=== PATIENT | female | born 1970 | race Caucasian/White ===

== ENCOUNTER 2019-02-21 00:53 | Emergency (ER) | payer BC, OTHER ==
[~2019-02-21] VITALS: Ht 152.4 cm; Wt 104.3 kg
[~2019-02-21 00:53] MED LIST: AZULFIDINE500 M1 PO; ENBREL50 MG/1 ML SQ; FOLIC ACID1 MG PO; HYDROCODON-ACE1 EA11 PO; KEFLEX500 MG PO; LISINOPRIL20 MG PO; METHOTREXATE 1 G1 GM; METOPROLOL TART50 MG PO; NEXIUM40 MG PO; NORCO 10-325 T1 EACH PO; PANTOPRAZOLE SO40 MG PO; PRILOSEC20 MG PO; TRICOR145 MG PO; ULTRAM50 MG PO; XANAX1 MG PO; XOPENEX HFA15 GM; ZESTRIL10 MG PO; ZOLOFT50 MG PO; ZYRTEC10 M3 PO
--- OUTSIDE RECORDS SUMMARY | 2019-02-21 00:58 | XMS REPORT | Continuity of Care Document ---
Author Author [facility] Interface Address Unknown Phone Unavailable Problems Problem Status Onset Date Classification Date Reported Comments Source Chronic low back pain 09/22/2017 Diagnosis 09/23/2017 [facility] RHEUMTOID ARTHRITIS PAIN IN HANDS HIPS F Active 10/13/2000 [facility] Dysuria Problem 09/23/2017 [facility] Medications Medication Details Route Status Patient Instructions Ordering Provider Order Date Source Alprazolam 0.5 MG Oral Tablet alprazolam 0.5 mg tablet TK 1 T PO BID Active [facility] Cyclobenzaprine hydrochloride 10 MG Oral Tablet cyclobenzaprine 10 mg tablet Take 1 tablet 3 times a day by oral route as needed for 10 days. Active [facility] 0.98 ML Etanercept 50 MG/ML Auto-Injector [Enbrel] Enbrel SureClick 50 mg/mL (0.98 mL) subcutaneous pen injector Active [facility] folic acid folic acid Active [facility] Acetaminophen 325 MG / Hydrocodone Bitartrate 5 MG Oral Tablet hydrocodone 5 mg-acetaminophen 325 mg tablet Active [facility] Hydroxyzine Hydrochloride 25 MG Oral Tablet hydroxyzine HCl 25 mg tablet Active [facility] Lidocaine 0.05 MG/MG Medicated Patch lidocaine 5 % topical patch Active [facility] Lisinopril 20 MG Oral Tablet lisinopril 20 mg tablet TK 1 T PO QD Active [facility] 200 ACTUAT Albuterol 0.09 MG/ACTUAT Metered Dose Inhaler [ProAir] ProAir HFA 90 mcg/actuation aerosol inhaler Active [facility] Sertraline 100 MG Oral Tablet sertraline 100 mg tablet TK 2 TS PO D Active [facility] Sulfasalazine 500 MG Oral Tablet sulfasalazine 500 mg tablet TK 2 TS PO BID Active [facility] tramadol hydrochloride 50 MG Oral Tablet tramadol 50 mg tablet TK 2 TS PO TID PRN Active [facility] Allergies, Adverse Reactions, Alerts Substance Category Reaction Severity Reaction type Status Date Reported Comments Source Advil Other Mild Allergy to substance 12/02/2011 [facility] Penicillins Allergy to substance 12/02/2011 [facility] cephalexin Assertion Drug allergy Active [facility] Keflex Assertion Drug allergy Active [facility] Immunizations Immunization Date Given Site Status Last Updated Comments Source Results Order Name Results Value Reference Range Date Interpretation Comments Source Foot 2 views bilateral DX Foot 2 views bilateral DX Clinical history: Rheumatoid Arthritis. : 1970. Technique: AP and lateral views of the bilateral feet. Findings: Right foot: There is no soft tissue swelling. No evidence for acute fracture. Normal articulations. No dislocation. No destructive lesion. Left foot: There is no soft tissue swelling. No evidence for acute fracture. Normal articulations. No dislocation. No destructive lesion. Impression: 1. No acute skeletal findings. 05/23/2015 - - Read by: Ta Tong MD Dictated Date/time: 05/23/15 16:09 Electronically Signed by: Ta Tong MD 05/23/15 16:09 FINAL REPORT [facility] Hip bilat w pelvis and both lat hips DX Hip bilat w pelvis and both lat hips DX Clinical history: Rheumatoid Arthritis. : 1970. Technique: 2 views of the bilateral hips and pelvis. Findings: Right hip: Normal hip joint. Normal sacroiliac joint. No evidence for acute fracture. No dislocation. No destructive lesion. Left hip: Normal hip joint. Normal sacroiliac joint. No evidence for acute fracture. No dislocation. No destructive lesion. Impression: 1. No acute skeletal findings. x-ray 05/23/2015 - - Read by: Ta Tong MD Dictated Date/time: 05/23/15 16:15 Electronically Signed by: Ta Tong MD 05/23/15 16:15 FINAL REPORT [facility] Hand 2 views Bilateral DX Hand 2 views Bilateral DX Clinical history: Rheumatoid Arthritis. : 1970. Technique: AP and lateral views of the bilateral hands. Findings: Right hand: There is no soft tissue swelling. No evidence for acute fracture. Normal articulations. No destructive lesion. Left hand: There is no soft tissue swelling. No evidence for acute fracture. Normal articulations. No destructive lesion. Impression: 1. No acute skeletal findings. 05/23/2015 - - Read by: Ta Tong MD Dictated Date/time: 05/23/15 16:09 Electronically Signed by: Ta Tong MD 05/23/15 16:10 FINAL REPORT [facility] Vital Signs Vital Sign Value Date Comments Source Diastolic (mm Hg) 80 09/22/2017 [facility] Height 60 09/22/2017 [facility] Systolic (mm Hg) 120 09/22/2017 [facility] Weight 195 09/22/2017 [facility] Encounters Location Location Details Encounter Type Encounter Number Reason For Visit Attending Provider ADM Date DC Date Status Source [facility] Outpatient [id number] Gail Ottcamilo 05/23/2015 05/24/2015 [facility] - [facility] - [id number] Charlee Alexandre, [facility]: [address] [place] [address], Ph. [id number] Charlee Alexandre 09/22/2017 [facility] Procedures Procedure Code Date Perfomer Comments Source Cholecystectomy [facility]
--- OUTSIDE RECORDS SUMMARY | 2019-02-21 00:58 | XMS REPORT | Encounter Summary ---
Author Organization Unknown Address [address] [place] [address] Phone [phone] Reason for Visit Medical Complaint Instructions 1. Chronic low back pain cyclobenzaprine 10 mg tablet Discussion Note Pt is in NAD; Verbalizes understanding of all instructions with no questions at this time. Patient educational handouts: No information available. Plan of Care Patient Instructions Recommend take cyclobenzaprine as directed. Do no operate any machinery or drive while taking these medications. Recommend avoid extreneous exercise, avoid heavy lifting. Activity as tolerated If worsening of symptoms follow up with PCP. In case of emergency call 911 or go to nearest ER. Reminders Provider Appointments None recorded. Lab None recorded. Referral None recorded. Procedures None recorded. Surgeries None recorded. Imaging None recorded. Medications Name Start Date alprazolam 0.5 mg tablet TK 1 T PO BID cyclobenzaprine 10 mg tablet Take 1 tablet 3 times a day by oral route as needed for 10 days. Enbrel SureClick 50 mg/mL (0.98 mL) subcutaneous pen injector folic acid hydrocodone 5 mg-acetaminophen 325 mg tablet hydroxyzine HCl 25 mg tablet lidocaine 5 % topical patch lisinopril 20 mg tablet TK 1 T PO QD ProAir HFA 90 mcg/actuation aerosol inhaler sertraline 100 mg tablet TK 2 TS PO D sulfasalazine 500 mg tablet TK 2 TS PO BID tramadol 50 mg tablet TK 2 TS PO TID PRN Medications Administered None recorded. Vitals Height Weight BMI Blood Pressure 5 ft 195 lbs 38.1 kg/m2 120/80 mm[Hg] Lab Results None recorded. Allergies Code Code System Name Reaction Severity Status Onset 461131 RxNorm Advil Other Mild Active 187968 Rx[facility] Keflex Hives Active Penicillins Active Problems Name Status Onset Date Source Dysuria Active Encounter Procedures Date Name Performed by Cholecystectomy Information not available Vaccine List None recorded. Social History Smoking Status Never Smoker Past Encounters 09/22/2017 Chronic Low Back Pain [facility]: [address] [place] [address], Ph. History of Present Illness One Time Refill Reported By: Patient HPI: Context: Patient here for medication refill, Why does patient require med refills at [facility]? (double click for free text answer). Quality: What medical problems does patient require refills for? (double click for free text), What medications does patient require refills for? (double click for free text). Duration: How long has patient been taking above medications? > 1 year. Onset/Timing: How long has patient been out of medication? still has some Review of Systems:ROS as noted in the HPI Review of Systems Basic Reported By: Patient Physical Exam Adult Basic, Adult Female Complete, Adult Male Complete Reported By: Patient Constitutional: General Appearance: healthy-appearing, well-nourished, well-developed. Level of Distress: NAD. Ambulation: ambulating normally Psychiatric: Mental Status: active and alert. Orientation: to time, to place, to person Lungs: Respiratory effort: no dyspnea, no tachypnea, no use of accessory muscles, no intercostal retractions. Auscultation: breath sounds normal, good air movement Cardiovascular: Heart Auscultation: RRR, no murmurs. Pulses including femoral / pedal: normal throughout Musculoskeletal:: Motor Strength and Tone: normal motor strength, normal tone, normal. Joints, Bones, and Muscles: no bony abnormalities, no contractures, no malalignment, no tenderness, limited ROM. Extremities: no cyanosis, no edema, no varicosities, no palpable cord Neurologic: Gait and Station: normal gait, normal station. Cranial Nerves: grossly intact. Sensation: grossly intact. Reflexes: DTRs 2+ bilaterally throughout Back: Thoracolumbar Appearance: normal curvature
--- OUTSIDE RECORDS SUMMARY | 2019-02-21 00:58 | XMS REPORT | Summary of Care ---
Author Author [facility] Organization [facility] Address Unknown Phone Unavailable Encounter HQ Encntr_alias(FIN) [id number] Date(s): 05/23/15 - 05/23/[address] [address]- Discharge Disposition: Home Attending Physician: Gail Keller MD Admitting Physician: Gail Keller MD Vital Signs No data available for this section Problem List No data available for this section Allergies, Adverse Reactions, Alerts Substance Reaction Severity Status cephalexin Active Keflex Active Medications No data available for this section Results No data available for this section Immunizations No data available for this section Procedures No data available for this section Social History No data available for this section Assessment and Plan No data available for this section
[2019-02-21] MEDS ORDERED: HYDROCODONE/APAP 5MG-325MG TAB PO ONE (01:30)
== END 2019-02-21 01:35 | disposition home or self-care (01) ==
LOC: FSED 00:53
DX: K08.89 Other specified disorders of teeth and supporting structures (principal); I10 Essential (primary) hypertension; M06.9 Rheumatoid arthritis, unspecified
CPT/HCPCS: 99283

== ENCOUNTER 2019-02-24 16:54 | Emergency (ER) | payer BC, OTHER ==
[~2019-02-24] VITALS: Ht 152.4 cm; Wt 104.3 kg
[2019-02-24] MEDS ORDERED: ONDANSETRON HCL INJ 2MG/ML 2ML 2 MG/ML VIAL IV STA (20:25)
[2019-02-24] MEDS ORDERED: MORPHINE SULFATE 5 MG/ML VIAL IV ONE (20:30)
[2019-02-24] MEDS ORDERED: CLINDAMYCIN 600MG / 50ML 50 ML IV ONE ×2 (20:30→22:25)
--- NOTE | 2019-02-24 22:20 | Diagnostic Imaging Report ---
History:Jaw pain and swelling Comparison studies: None Technique: Axial images were obtained through the facial region. Coronal and sagittal images reconstructed from the axial data. Dose modulation, iterative reconstruction, and/or weight based adjustment of the mA/kV was utilized to reduce the radiation dose to as low as reasonably achievable. Intravenous contrast: 100 cc of Omnipaque 300. Findings: Teeth: Multiple missing teeth. A periapical abscess in the root of what is probably the left right second mandibular molar (tooth #31) is not associated with erosive changes in the overlying buccal cortex. Soft tissues: Ill-defined enhancing inflammatory changes along the buccal surface of the right mandible are not associated with a fluid collection to indicate the presence of an abscess. Lymph nodes: 1 and 1.5 cm cm homogeneously enhancing, nonnecrotic right submandibular, 1.5 cm right suprahyoid jugular and subcentimeter submental are reactive. Otherwise, no significant adenopathy. Bones: No fractures or bone abnormalities. Orbits: Globes: Intact. Extra or intraconal abnormalities: None. Paranasal sinuses: Focal mucosal thickening in the floor of the right maxillary sinus and in the right ethmoid air cells. Otherwise, clear. IMPRESSION: 1. Acute cellulitis along the buccal surface of the right mandibular body is secondary to a periapical abscess in the root of what is presumed to be the right second mandibular molar (tooth #31). 2. No buccal or lingual abscesses. 3. Reactive right submandibular, submental and right suprahyoid jugular nonnecrotic adenopathy. 4. Otherwise, no abnormalities. Signed by: Dr. German Santos M.D. on 02/24/2019 10:14 PM
[2019-02-24] MEDS ORDERED: ONDANSETRON HCL INJ 2MG/ML 2ML 2 MG/ML VIAL ONE (22:25)
[2019-02-25] MEDS ORDERED: MORPHINE SULFATE 5 MG/ML VIAL IV ONE (00:15)
--- NOTE | 2019-02-26 22:00 | NUR ---
RECVD CALL FROM LABORATORY AT [facility], WITH RESULT OF POSITIVE BLOOD CULTURE FROM DOS 02/24/2019, AEROBIC BOTTLE POSITIVE FOR GRAM POS COCCI IN CLUSTERS. FORWARDED INFORMATION TO DEIRDRE WHITTEN (RN AT [facility]) RN WHO WAS TAKING CARE OF PATIENT AT [facility] RM 547. PT TRANSFERRED TO [facility] ON 02/24/2019 FROM [facility].
== END 2019-02-25 00:45 | disposition other institution (70) ==
LOC: FSED 16:54
DX: K04.7 Periapical abscess without sinus (principal); L03.211 Cellulitis of face; R68.84 Jaw pain
CPT/HCPCS: 70491; 80053; 85025; 87040; 87071; 87205; 99284; J2270; J2405

== ENCOUNTER 2020-03-23 17:03 | Emergency (ER) | payer BC ==
[~2020-03-23] VITALS: Ht 152.4 cm; Wt 100.7 kg
--- OUTSIDE RECORDS SUMMARY | 2020-03-23 17:07 | XMS REPORT | Continuity of Care Document ---
Author Author ALISIA Cisneros [facility] Information [employer] Address Unknown Phone Unavailable Care Team Providers Care Surveillance Specialist Name Role Phone [employer] Unavailable Un available Problems Problem Status Onset Date Classification Date Reported Comments Source RHEUMTOID ARTHRITIS PAIN IN HANDS HIPS F Active 10/13/2000 [facility] Medications No Data Provided for This Section Allergies, Adverse Reactions, Alerts Substance Category Reaction Severity Reaction type Status Date Reported Comments Source cephalexin Assertion Drug allergy Active [facility] Keflex Assertion Drug allergy Active [facility] Immunizations No Data Provided for This Section Results No Data Provided for This Section Pathology Reports No Data Provided for This Section Diagnostic Reports Report Value Date Source Hip bilat w pelvis and both lat [...] 1. No acute skeletal findings. x-ray 05/23/2015 [facility] Foot 2 views bilateral DX Clin ical history: Rheumatoid Arthritis. : 1970. Technique: AP and lateral views of the bilateral feet. Findings: Right foot: There is no soft tissue swelling. No evidence for acute fracture. Normal articulations. No dislocation. No destructive lesion. Left foot: There is no soft tissue swelling. No evidence for acute fracture. Normal articulations. No dislocation. No destructive lesion. Impression: 1. No acute skeletal findings. 05/23/2015 [facility] Hand 2 views Bilateral DX Clin ical history: Rheumatoid Arthritis. : 1970. Technique: AP and lateral views of the bilateral hands. Findings: Right hand: There is no soft tissue swelling. No evidence for acute fracture. Normal articulations. No destructive lesion. Left hand: There is no soft tissue swelling. No evidence for acute fracture. Normal articulations. No destructive lesion. Impression: 1. No acute skeletal findings. 05/23/2015 [facility] Consultation Notes No Data Provided for This Section Discharge Summaries No Data Provided for This Section History and Physicals No Data Provided for This Section Vital Signs No Data Provided for This Section Encounters Location Location Details Encounter Type Encounter Number Reason For Visit Attending Provider ADM Date DC Date Status Source [facility] Outpatient [id number] Gail Ottcamilo 05/23/2015 05/24/2015 [facility] Procedures No Data Provided for This Section Assessment and Plan No Data Provided for This Section Plan of Care No Data Provided for This Section Social History Social History Date Source No data available for this section 05/24/2015 [facility] Family History No Data Provided for This Section Advance Directives No Data Provided for This Section Functional Status No Data Provided for This Section
--- OUTSIDE RECORDS SUMMARY | 2020-03-23 17:07 | XMS REPORT | Continuity of Care Document ---
Author Author [facility] Organization [facility] Address [facility] Alvin Men[address]za [address] [place] [address] Phone Unavailable Care Team Providers Care Concrete Handler Name Role Phone SHAYY MAYEN, SUZETTE PCP Yessy VASQUEZ Attphys Unavailable Yessy Keller Attphys Yessy Keller Admphys Payers Payer Name Policy Type Policy Number Effective Date Expiration Date S [facility] [employer] [place] [id number] 2017 00:[facility]00 [facility] [id number] Problems Condition Name Condition Details Condition Category Status Onset Date Resolution Date Last Treatment Date Treating Clinician Comments Source Pancreatitis Pancreatitis Problem Active 2014-10-08 00:00:00 [facility] RHEUMTOID ARTHRITIS PAIN IN HANDS HIPS F RHEUMTOID ARTHRITIS PAIN IN HANDS HIPS F Active 10/13/2000 [facility] Diagnosis Active 2000-10-13 00:00:00 2015-05-23 15:59:00 Kimberly Singer Allergies, Adverse Reactions, Alerts Allergy Name Allergy Type Status Severity Reaction(s) Onset Date Inacti ve Date Treating Clinician Comments Source ibuprofen DA Active 2019-02-25 00:00:00 [facility] levofloxacin DA Active 2019-02-25 00:00:00 [facility] cephalexin DA Active 2019-02-25 00:00:00 [facility] Levofloxacin Allergy to Substance Active 2014-10-07 00:00:0 0 [facility] Ibuprofen Allergy to Substance Active 2013-05-14 00:00:00 [facility] KEFLEX DA Active U 2008-04-15 00:00:00 [facility] No Known Contrast Allergies DA Active U 2008-04-15 00:00: 00 [facility] No Known Food Allergies DA Active U 2008-04-15 00:00:00 [facility] No Known Other Allergies DA Active U 2008-04-15 00:00:00 [facility] PENICILLIN DA Active U 2008-04-15 00:00:00 [facility] Keflex Keflex [facility] Social History Social Habit Start Date Stop Date Quantity Comments Source Social History 2015-05-24 04:59:00 2015-05-24 04:59:00 [facility] Medications Ordered Medication Name Filled Medication Name Start Date Stop Da te Current Medication? Ordering Clinician Indication Dosage Frequency Signature (SIG) Comments Components Source Alprazolam (Xanax*) 1 Mg Tablet Alprazolam (Xanax*) 1 Mg Tablet Yes 1 As Needed as needed for Anxiety [facility] Cetirizine Hcl (Zyrtec) 10 Mg Capsule Cetirizine Hcl (Zyrtec) 10 Mg Capsule Yes 10 Daily [facility] Etanercept (Enbrel) 50 Mg/1 Ml Disp.syrin Etanercept ( Enbrel) 50 Mg/1 Ml Disp.syrin Yes 50 Weekly [facility] Hydrocodone Bit/Acetaminophen ([place] 10-325 Tablet) 1 Each Tablet Hydrocodone Bit/Acetaminophen ([place] 10-325 Tablet) 1 Each Tablet Yes 1 Every 4 Hours as needed for Pain [facility] Lisinopril (Prinavil / Zestril) 20 Mg Tablet Lisinopri l (Prinavil / Zestril) 20 Mg Tablet Yes Daily [facility] Pantoprazole Sodium (Protonix) 40 Mg Tablet. Pantopr azole Sodium (Protonix) 40 Mg Tablet. Yes 40 Twice A Day [facility] Sertraline Hcl (Zoloft) 50 Mg Tablet Sertraline Hcl (Zoloft) 50 Mg Tablet Yes 50 Daily [facility] Sulfasalazine (Azulfidine) 500 Mg Tablet. Sulfasalaz ine (Azulfidine) 500 Mg Tablet. Yes 1000 Daily [facility] Tramadol Hcl (Ultram) 50 Mg Tablet Tramadol Hcl (Ultram) 50 Mg Tablet Yes 50 As Needed [facility] Esomeprazole Magnesium (Nexium) 40 Mg Capsule., 40 M g Oral Esomeprazole Magnesium (Nexium) 40 Mg Capsule., 40 Mg Oral 2016-02-15 00:00:00 No 40 Daily [facility] Cephalexin Monohydrate (Keflex) 500 Mg Capsule, 1 Tab Oral Cephalexin Monohydrate (Keflex) 500 Mg Capsule, 1 Tab Oral 2016-02-14 00:00:00 No 1 Three Times A Day [facility] Fenofibrate (Tricor) 145 Mg Tab, Tab Oral Fenofibrate (Tricor) 145 Mg Tab, Tab Oral 2014-10-07 00:00:00 No Daily [facility] Folic Acid 1 Mg Tablet, 1 Mg Oral Folic Acid 1 Mg Tablet, 1 Mg O ral 2014-10-07 00:00:00 No 1 Daily [facility] Hydrocodone Bit/Acetaminophen (Hydrocodo n-Acetaminophen 5-325) 1 Each Tablet, 1 Tab Oral Hydrocodone Bit/Acetaminophen (Hydrocodo n-Acetaminophen 5-325) 1 Each Tablet, 1 Tab Oral 2014-10-07 00:00:00 No 1 As Ne eded [facility] Levalbuterol Tartrate (Xopenex Hfa) 15 Gm Hfa.aer.ad, 1 Levalbuterol Tartrate (Xopenex Hfa) 15 Gm Hfa.aer.ad, 1 2014-10-07 00:00:00 No 1 As Needed [facility] Lisinopril (Zestril*) 10 Mg Tablet, 10 Mg Oral Lisinop ril (Zestril*) 10 Mg Tablet, 10 Mg Oral 2014-10-07 00:00:00 No 10 Daily [facility] Methotrexate Sodium/Pf (Methotrexate 1 Gm Vial) 1 Gm V ial, 1 Gm Methotrexate Sodium/Pf (Methotrexate 1 Gm Vial) 1 Gm Vial, 1 Gm 2014-10-07 00:00:0 0 No 1 [facility] Metoprolol Tartrate 50 Mg Tablet, Tab Oral Metoprolol Tartrate 50 Mg Tablet, Tab Oral 2014-10-07 00:00:00 No Twice A Day [facility] Omeprazole (Prilosec) 20 Mg Capsule.dr, 20 Mg Oral Ome prazole (Prilosec) 20 Mg Capsule.dr, 20 Mg Oral 2014-10-07 00:00:00 No 20 D ialy [facility] Sertraline Hcl (Zoloft) 50 Mg Tablet, 50 Mg Oral Sertr matt Hcl (Zoloft) 50 Mg Tablet, 50 Mg Oral 2014-10-07 00:00:00 No 50 Daily [facility] Procedures This patient has no known procedures. Encounters Start Date/Time End Date/Time [facility] ID Source 2019-02-24 16:54:00 2019-02-25 00:45:00 Departed Emergency Room [address] [facility] [id number] [facility] 2019-02-21 00:53:00 2019-02-21 01:35:[address] [facility] [id number] [facility] 2015-05-23 15:51:00 2015-05-23 23:59:00 Outpatient Gail Keller [facility] [id number] Results Test Description Test Time Test Comments Results Result Comments Source CBC W/AUTO DIFF 2019-02-28 09:23:00 Test Item WHITE BLOOD CELL (test code = WBC) 11.75 x10 3/uL 4.5-11.0 H RED BLOOD CELL (test code = RBC) 4.46 x10 6/uL 3.54-5.02 N HEMOGLOBIN (test code = HGB) 12.0 g/dL 11.0-15.0 N HEMATOCRIT (test code = HCT) 38.3 % 33.0-45.0 N MEAN CELL VOLUME (test code = MCV) 85.9 fL 81.0-99.0 N MEAN CELL HGB (test code = MCH) 26.9 pg 27.0-33.0 L MEAN CELL HGB CONCETRATION (test code = MCHC) 31.3 g/dL 33.0-37. 0 L RED CELL DISTRIBUTION WIDTH CV (test code = RDW) 14.6 % 11.5- 14.5 H RED CELL DISTRIBUTION WIDTH SD (test code = RDW-SD) 45.5 fL 37 .0-54.0 N PLATELET COUNT (test code = PLT) 362 x10 3/uL 150-400 N MEAN PLATELET VOLUME (test code = MPV) 11.7 fL 7.0-9.0 H NEUTROPHIL % (test code = NT%) 49.9 % 56.0-77.0 L IMMATURE GRANULOCYTE % (test code = IG%) 1.7 % 0.0-2.0 N LYMPHOCYTE % (test code = LY%) 37.7 % 14.0-32.0 H MONOCYTE % (test code = MO%) 9.4 % 4.8-9.0 H EOSINOPHIL % (test code = EO%) 0.8 % 0.3-3.7 N BASOPHIL % (test code = BA%) 0.5 % 0.0-2.0 N NUCLEATED RBC % (test code = NRBC%) 0.3 % 0-0 H NEUTROPHIL # (test code = NT#) 5.87 x10 3/uL 2.0-7.6 N IMMATURE GRANULOCYTE # (test code = IG#) 0.20 x10 3/uL 0.00-0.03 H LYMPHOCYTE # (test code = LY#) 4.43 x10 3/uL 1.0-3.8 H MONOCYTE # (test code = MO#) 1.10 x10 3/uL 0.1-0.8 H EOSINOPHIL # (test code = EO#) 0.09 x10 3/uL 0.0-0.2 N BASOPHIL # (test code = BA#) 0.06 x10 3/uL 0.0-0.2 N NUCLEATED RBC # (test code = NRBC#) 0.03 x10 3/uL 0.0-0.1 N MANUAL DIFF REQUIRED (test code = MDIFF) NO BASIC METABOLIC [id number] 08:06:00* Test Item Value Reference Range Interpretation Comments SODIUM (test code = NA) 138 mEq/L 134-147 N POTASSIUM (test code = K) 3.2 mEq/L 3.4-5.0 L CHLORIDE (test code = CL) 104 mEq/L 100-108 N CARBON DIOXIDE (test code = CO2) 25 mEq/L 21-33 N ANION GAP (test code = GAP) 12 0-20 N GLUCOSE (test code = GLU) 85 mg/dL 70-110 BLOOD UREA NITROGEN (test code = BUN) 9 mg/dL 7-18 GLOMERULAR FILTRATION RATE (test code = GFR) 130.6 90-95 H Units of measure = ml/min/1.73 m2 CREATININE (test code = CREAT) 0.5 mg/dL 0.6-1.3 L CALCIUM (test code = CA) 8.7 mg/dL 8.0-10.5 N CBC W/AUTO [id number] 12:10:00* Test Item Value Reference Range Interpretation Comments WHITE BLOOD CELL (test code = WBC) 12.50 x10 3/uL 4.5-11.0 H RED BLOOD CELL (test code = RBC) 4.64 x10 6/uL 3.54-5.02 N HEMOGLOBIN (test code = HGB) 12.4 g/dL 11.0-15.0 N HEMATOCRIT (test code = HCT) 39.0 % 33.0-45.0 N MEAN CELL VOLUME (test code = MCV) 84.1 fL 81.0-99.0 N MEAN CELL HGB (test code = MCH) 26.7 pg 27.0-33.0 L MEAN CELL HGB CONCETRATION (test code = MCHC) 31.8 g/dL 33.0-37. 0 L RED CELL DISTRIBUTION WIDTH CV (test code = RDW) 14.3 % 11.5- 14.5 N RED CELL DISTRIBUTION WIDTH SD (test code = RDW-SD) 43.8 fL 37 .0-54.0 N PLATELET COUNT (test code = PLT) 332 x10 3/uL 150-400 N MEAN PLATELET VOLUME (test code = MPV) 12.4 fL 7.0-9.0 H NEUTROPHIL % (test code = NT%) 83.4 % 56.0-77.0 H IMMATURE GRANULOCYTE % (test code = IG%) 0.9 % 0.0-2.0 N LYMPHOCYTE % (test code = LY%) 10.3 % 14.0-32.0 L MONOCYTE % (test code = MO%) 5.2 % 4.8-9.0 N EOSINOPHIL % (test code = EO%) 0.0 % 0.3-3.7 L BASOPHIL % (test code = BA%) 0.2 % 0.0-2.0 N NUCLEATED RBC % (test code = NRBC%) 0.0 % 0-0 N NEUTROPHIL # (test code = NT#) 10.42 x10 3/uL 2.0-7.6 H IMMATURE GRANULOCYTE # (test code = IG#) 0.11 x10 3/uL 0.00-0.03 H LYMPHOCYTE # (test code = LY#) 1.29 x10 3/uL 1.0-3.8 N MONOCYTE # (test code = MO#) 0.65 x10 3/uL 0.1-0.8 N EOSINOPHIL # (test code = EO#) 0.00 x10 3/uL 0.0-0.2 N BASOPHIL # (test code = BA#) 0.03 x10 3/uL 0.0-0.2 N NUCLEATED RBC # (test code = NRBC#) 0.00 x10 3/uL 0.0-0.1 N MANUAL DIFF REQUIRED (test code = MDIFF) NO PLT [id number] 12:10:00* Test Item Value Reference Range Interpretation Comments PLATELET ESTIMATE (test code = PLTEST) THOUSAND ADEQUATE CBC W/AUTO [id number] 12:10:00* Test Item Value Reference Range Interpretation Comments WHITE BLOOD CELL (test code = WBC) 12.50 x10 3/uL 4.5-11.0 H RED BLOOD CELL (test code = RBC) 4.64 x10 6/uL 3.54-5.02 N HEMOGLOBIN (test code = HGB) 12.4 g/dL 11.0-15.0 N HEMATOCRIT (test code = HCT) 39.0 % 33.0-45.0 N MEAN CELL VOLUME (test code = MCV) 84.1 fL 81.0-99.0 N MEAN CELL HGB (test code = MCH) 26.7 pg 27.0-33.0 L MEAN CELL HGB CONCETRATION (test code = MCHC) 31.8 g/dL 33.0-37. 0 L RED CELL DISTRIBUTION WIDTH CV (test code = RDW) 14.3 % 11.5- 14.5 N RED CELL DISTRIBUTION WIDTH SD (test code = RDW-SD) 43.8 fL 37 .0-54.0 N PLATELET COUNT (test code = PLT) 332 x10 3/uL 150-400 N MEAN PLATELET VOLUME (test code = MPV) 12.4 fL 7.0-9.0 H NEUTROPHIL % (test code = NT%) 83.4 % 56.0-77.0 H IMMATURE GRANULOCYTE % (test code = IG%) 0.9 % 0.0-2.0 N LYMPHOCYTE % (test code = LY%) 10.3 % 14.0-32.0 L MONOCYTE % (test code = MO%) 5.2 % 4.8-9.0 N EOSINOPHIL % (test code = EO%) 0.0 % 0.3-3.7 L BASOPHIL % (test code = BA%) 0.2 % 0.0-2.0 N NUCLEATED RBC % (test code = NRBC%) 0.0 % 0-0 N NEUTROPHIL # (test code = NT#) 10.42 x10 3/uL 2.0-7.6 H IMMATURE GRANULOCYTE # (test code = IG#) 0.11 x10 3/uL 0.00-0.03 H LYMPHOCYTE # (test code = LY#) 1.29 x10 3/uL 1.0-3.8 N MONOCYTE # (test code = MO#) 0.65 x10 3/uL 0.1-0.8 N EOSINOPHIL # (test code = EO#) 0.00 x10 3/uL 0.0-0.2 N BASOPHIL # (test code = BA#) 0.03 x10 3/uL 0.0-0.2 N NUCLEATED RBC # (test code = NRBC#) 0.00 x10 3/uL 0.0-0.1 N MANUAL DIFF REQUIRED (test code = MDIFF) NO PLT [id number] 12:10:00* Test Item Value Reference Range Interpretation Comments PLATELET ESTIMATE (test code = PLTEST) Adequate THOUSAND ADEQUATE BASIC METABOLIC [id number] 08:31:00* Test Item Value Reference Range Interpretation Comments SODIUM (test code = NA) 136 mEq/L 134-147 N POTASSIUM (test code = K) 3.9 mEq/L 3.4-5.0 N CHLORIDE (test code = CL) 105 mEq/L 100-108 N CARBON DIOXIDE (test code = CO2) 23 mEq/L 21-33 N ANION GAP (test code = GAP) 12 0-20 N GLUCOSE (test code = GLU) 117 mg/dL 70-110 H BLOOD UREA NITROGEN (test code = BUN) 5 mg/dL 7-18 L GLOMERULAR FILTRATION RATE (test code = GFR) 105.8 90-95 H Units of measure = ml/min/1.73 m2 CREATININE (test code = CREAT) 0.6 mg/dL 0.6-1.3 N CALCIUM (test code = CA) 8.7 mg/dL 8.0-10.5 N CBC W/AUTO [id number] 07:59:00* Test Item Value Reference Range Interpretation Comments WHITE BLOOD CELL (test code = WBC) 12.50 x10 3/uL 4.5-11.0 H RED BLOOD CELL (test code = RBC) 4.64 x10 6/uL 3.54-5.02 N HEMOGLOBIN (test code = HGB) 12.4 g/dL 11.0-15.0 N HEMATOCRIT (test code = HCT) 39.0 % 33.0-45.0 N MEAN CELL VOLUME (test code = MCV) 84.1 fL 81.0-99.0 N MEAN CELL HGB (test code = MCH) 26.7 pg 27.0-33.0 L MEAN CELL HGB CONCETRATION (test code = MCHC) 31.8 g/dL 33.0-37. 0 L RED CELL DISTRIBUTION WIDTH CV (test code = RDW) 14.3 % 11.5- 14.5 N RED CELL DISTRIBUTION WIDTH SD (test code = RDW-SD) 43.8 fL 37 .0-54.0 N PLATELET COUNT (test code = PLT) x10 3/uL 150-400 N MEAN PLATELET VOLUME (test code = MPV) 12.4 fL 7.0-9.0 H NEUTROPHIL % (test code = NT%) 83.4 % 56.0-77.0 H IMMATURE GRANULOCYTE % (test code = IG%) 0.9 % 0.0-2.0 N LYMPHOCYTE % (test code = LY%) 10.3 % 14.0-32.0 L MONOCYTE % (test code = MO%) 5.2 % 4.8-9.0 N EOSINOPHIL % (test code = EO%) 0.0 % 0.3-3.7 L BASOPHIL % (test code = BA%) 0.2 % 0.0-2.0 N NUCLEATED RBC % (test code = NRBC%) 0.0 % 0-0 N NEUTROPHIL # (test code = NT#) 10.42 x10 3/uL 2.0-7.6 H IMMATURE GRANULOCYTE # (test code = IG#) 0.11 x10 3/uL 0.00-0.03 H LYMPHOCYTE # (test code = LY#) 1.29 x10 3/uL 1.0-3.8 N MONOCYTE # (test code = MO#) 0.65 x10 3/uL 0.1-0.8 N EOSINOPHIL # (test code = EO#) 0.00 x10 3/uL 0.0-0.2 N BASOPHIL # (test code = BA#) 0.03 x10 3/uL 0.0-0.2 N NUCLEATED RBC # (test code = NRBC#) 0.00 x10 3/uL 0.0-0.1 N MANUAL DIFF REQUIRED (test code = MDIFF) NO PLT [id number] 07:59:00* Test Item Value Reference Range Interpretation Comments PLATELET ESTIMATE (test code = PLTEST) THOUSAND ADEQUATE CBC W/AUTO [id number] 07:59:00* Test Item Value Reference Range Interpretation Comments WHITE BLOOD CELL (test code = WBC) 12.50 x10 3/uL 4.5-11.0 H RED BLOOD CELL (test code = RBC) 4.64 x10 6/uL 3.54-5.02 N HEMOGLOBIN (test code = HGB) 12.4 g/dL 11.0-15.0 N HEMATOCRIT (test code = HCT) 39.0 % 33.0-45.0 N MEAN CELL VOLUME (test code = MCV) 84.1 fL 81.0-99.0 N MEAN CELL HGB (test code = MCH) 26.7 pg 27.0-33.0 L MEAN CELL HGB CONCETRATION (test code = MCHC) 31.8 g/dL 33.0-37. 0 L RED CELL DISTRIBUTION WIDTH CV (test code = RDW) 14.3 % 11.5- 14.5 N RED CELL DISTRIBUTION WIDTH SD (test code = RDW-SD) 43.8 fL 37 .0-54.0 N PLATELET COUNT (test code = PLT) x10 3/uL 150-400 N MEAN PLATELET VOLUME (test code = MPV) 12.4 fL 7.0-9.0 H NEUTROPHIL % (test code = NT%) 83.4 % 56.0-77.0 H IMMATURE GRANULOCYTE % (test code = IG%) 0.9 % 0.0-2.0 N LYMPHOCYTE % (test code = LY%) 10.3 % 14.0-32.0 L MONOCYTE % (test code = MO%) 5.2 % 4.8-9.0 N EOSINOPHIL % (test code = EO%) 0.0 % 0.3-3.7 L BASOPHIL % (test code = BA%) 0.2 % 0.0-2.0 N NUCLEATED RBC % (test code = NRBC%) 0.0 % 0-0 N NEUTROPHIL # (test code = NT#) 10.42 x10 3/uL 2.0-7.6 H IMMATURE GRANULOCYTE # (test code = IG#) 0.11 x10 3/uL 0.00-0.03 H LYMPHOCYTE # (test code = LY#) 1.29 x10 3/uL 1.0-3.8 N MONOCYTE # (test code = MO#) 0.65 x10 3/uL 0.1-0.8 N EOSINOPHIL # (test code = EO#) 0.00 x10 3/uL 0.0-0.2 N BASOPHIL # (test code = BA#) 0.03 x10 3/uL 0.0-0.2 N NUCLEATED RBC # (test code = NRBC#) 0.00 x10 3/uL 0.0-0.1 N MANUAL DIFF REQUIRED (test code = MDIFF) NO PLT [id number] 07:59:00* Test Item Value Reference Range Interpretation Comments PLATELET ESTIMATE (test code = PLTEST) THOUSAND ADEQUATE - XR CHEST 1 [id number] 13:15:00 FAX: Tisha Gutiérrez CRNA [place]: St: ADM FAX: Francy Fisher [phone] Name: ALISIA DIAZ [facility] Ste[place] : 1970 Age/S: 48/F [address] [place], [place] [address]vd Unit #: [id number] Loc: [address] [address] Phys: Tisha Carranza ARNULFO Acct: [id number] Dis Date: Status: ADM IN PHONE #: [phone] Exam Date: 02/25/2019 1230 FAX #: [phone] Reason: PRE OP PROTOCOL EXAMS: CPT CODE: [id number] XR CHEST 1 V [id number] CHEST, ONE VIEW: HISTORY: Preoperative evaluation. Facial abscess. COMPARISON EXAM(S): None available. FINDINGS: This single portable view was obtained at 1133 hours on 02/25/2019 and shows mild cardiomegaly without acute infiltrates or effusions. No evidence of pneumothorax. The skeletal structures are unremarkable. Artifactual densities projected over the left scapula. IMPRESSION: 1. No acute changes. 2. Mild cardiomegaly. SL:01 at 1315 Reported and signed by: Chase Thompson M.D. CC: Tisha Carranza PECAN SHELLER; Francy Fisher MD Technologist: Vaishali ZamoraRT(R) Trnscrd Date/Time/By: 02/25/2019 (4112) : By: Amanda/Amanda Orig Print D/T: S: 02/25/2019 (4682) PAGE 1 Signed Report UR HCG [id number] 13:02:00 * Test Item Value Reference Range Interpretation Comments UR HCG QUAL (test code = HCGQLU) NEGATIVE NEGATIVE CBC W/AUTO [id number] 01:38:00* Test Item Value Reference Range Interpretation Comments WHITE BLOOD CELL (test code = WBC) 13.52 x10 3/uL 4.5-11.0 H RED BLOOD CELL (test code = RBC) 4.58 x10 6/uL 3.54-5.02 N HEMOGLOBIN (test code = HGB) 12.3 g/dL 11.0-15.0 N HEMATOCRIT (test code = HCT) 38.6 % 33.0-45.0 N MEAN CELL VOLUME (test code = MCV) 84.3 fL 81.0-99.0 N MEAN CELL HGB (test code = MCH) 26.9 pg 27.0-33.0 L MEAN CELL HGB CONCETRATION (test code = MCHC) 31.9 g/dL 33.0-37. 0 L RED CELL DISTRIBUTION WIDTH CV (test code = RDW) 14.1 % 11.5- 14.5 N RED CELL DISTRIBUTION WIDTH SD (test code = RDW-SD) 43.0 fL 37 .0-54.0 N PLATELET COUNT (test code = PLT) 293 x10 3/uL 150-400 N MEAN PLATELET VOLUME (test code = MPV) 11.6 fL 7.0-9.0 H NEUTROPHIL % (test code = NT%) 61.9 % 56.0-77.0 N IMMATURE GRANULOCYTE % (test code = IG%) 0.6 % 0.0-2.0 N LYMPHOCYTE % (test code = LY%) 28.3 % 14.0-32.0 N MONOCYTE % (test code = MO%) 7.8 % 4.8-9.0 N EOSINOPHIL % (test code = EO%) 1.0 % 0.3-3.7 N BASOPHIL % (test code = BA%) 0.4 % 0.0-2.0 N NUCLEATED RBC % (test code = NRBC%) 0.0 % 0-0 N NEUTROPHIL # (test code = NT#) 8.37 x10 3/uL 2.0-7.6 H IMMATURE GRANULOCYTE # (test code = IG#) 0.08 x10 3/uL 0.00-0.03 H LYMPHOCYTE # (test code = LY#) 3.83 x10 3/uL 1.0-3.8 H MONOCYTE # (test code = MO#) 1.06 x10 3/uL 0.1-0.8 H EOSINOPHIL # (test code = EO#) 0.13 x10 3/uL 0.0-0.2 N BASOPHIL # (test code = BA#) 0.05 x10 3/uL 0.0-0.2 N NUCLEATED RBC # (test code = NRBC#) 0.00 x10 3/uL 0.0-0.1 N MANUAL DIFF REQUIRED (test code = MDIFF) NO CHEMISTRY 8 [id number] 01:36:00* Test Item Value Reference Range Interpretation Comments ISTAT-SODIUM (test code = NAP) MMOL/L 134-147 ISTAT-POTASSIUM (test code = KP) MMOL/L 3.4-5.0 ISTAT-CHLORIDE (test code = CLP) MMOL/L 100-108 ISTAT CARBON DIOXIDE (test code = ISTAT-CO2) mmol/L 21-33 N ISTAT CALCIUM IONIZED (test code = ISTAT-KENJI) MG/DL 1.12-1.3 2 ISTAT-GLUCOSE (test code = GLUP) MG/DL 70-110 N ISTAT-BUN (test code = BUNP) MG/DL 7-18 N BEDSIDE CREATININE (test code = CREATBED) MG/DL 0.6-1.3 L GLOMERULAR FILTRATION RATE POC (test code = GFRBED) 139 ML/MIN CHEMISTRY 8 [id number] 01:36:00* Test Item Value Reference Range Interpretation Comments ISTAT-SODIUM (test code = NAP) 137 MMOL/L 134-147 N ISTAT-POTASSIUM (test code = KP) 3.4 MMOL/L 3.4-5.0 N ISTAT-CHLORIDE (test code = CLP) 100 MMOL/L 100-108 N Performed by certified abrasive coating machine operator at [facility] ISTAT CARBON DIOXIDE (test code = ISTAT-CO2) 24.0 mmol/L 21-33 N ISTAT CALCIUM IONIZED (test code = ISTAT-KENJI) 1.17 MG/DL 1.12-1.3 2 N ISTAT-GLUCOSE (test code = GLUP) 99 MG/DL 70-110 N ISTAT-BUN (test code = BUNP) 15 MG/DL 7-18 N BEDSIDE CREATININE (test code = CREATBED) 0.5 MG/DL 0.6-1.3 L GLOMERULAR FILTRATION RATE POC (test code = GFRBED) 139 ML/MIN CT SOFT TISSUE NEXK [id number] 22:02:00 [facility] [address] [address] Patient Name: ALISIA DIAZ MR #: [id number] : 1970 Age/Sex: 48/F Req #: [id number] Adm Physician: Ordered by: JANA VASQUEZ MD Report #: [id number] Location: FS Room/Bed: Procedure: 0515-0 020 HOPD/CT SOFT TISSUE NEXK WITH-HOPD Exam Date: 02/24/19 Exam Time: 2147 REPORT STATU S: Signed History:Jaw pain and swelling Comparison studies: None Techn ique: Axial images were obtained through the facial region. Coronal and sagi ttal images reconstructed from the axial data. Dose modulation, iterative sea nstruction, and/or weight based adjustment of the mA/kV was utilized to reduc e the radiation dose to as low as reasonably achievable. Intravenous con trast: 100 cc of Omnipaque 300. Findings: Teeth: Multiple missing te eth. A periapical abscess in the root of what is probably the left right secon d mandibular molar (tooth #31) is not associated with erosive changes in the overlying buccal cortex. Soft tissues: Ill-defined enhancing inflammato ry changes along the buccal surface of the right mandible are not associated w ith a fluid collection to indicate the presence of an abscess. Lymph node s: 1 and 1.5 cm cm homogeneously enhancing, nonnecrotic right submandibular, 1 .5 cm right suprahyoid jugular and subcentimeter submental are reactive. Oth erwise, no significant adenopathy. Bones: No fractures or bone abnormali ties. Orbits: Globes: Intact. Extra or intraconal abnormalities: None. Paranasal sinuses: Focal mucosal thickening in the floor of the right m axillary sinus and in the right ethmoid air cells. Otherwise, clear. IM PRESSION: 1. Acute cellulitis along the buccal surface of the right mandib ular body is secondary to a periapical abscess in the root of what is presumed to be the right second mandibular molar (tooth #31). 2. No buccal or li ngual abscesses. 3. Reactive right submandibular, submental and right supr ahyoid jugular nonnecrotic adenopathy. 4. Otherwise, no abnormalities. Signed by: Dr. German Santos M.D. on 02/24/2019 10:14 PM Dictated By: GERMAN SANTOS MD, MD 13 Transcribed By: MONET on 02/24/192213 COPY TO: JANA VASQUEZ MD
--- NOTE | 2020-03-23 18:56 | Emergency Department Note ---
History of Present Illnes History of Present Illness Chief Complaint: Back Pain History of Present Illness This is a 49 year old female hx of RA, obese, pancreatitis, s/p lap/nael c/o right mid back pain radiating to the front, hurts with movement and deep breath, feeling better if she wears an abdomen binder. Denies f/c no n/v. Pt had this pain since December, had labs and Ct scan done but no diagnosis was made. She fell better but the pain came back 1 week ago. She saw Dr Lopez yesterday, labs done and pending. . Historian: Patient Arrival Mode: Car Onset (how long ago): day(s) Radiation: Reports back, Reports abdomen Severity: moderate Duration (how long): day(s) Timing of current episode: constant Progression: worsening Chronicity: recurrent Relieving factors: immobilization Exacerbating factors: movement Associated symptoms: Reports denies other symptoms Treatments prior to arrival: none Past Medical/Family History Physician Review I have reviewed the patient's past medical and family history. Any updates have been documented here. Past Medical History Recent Fever: No Clinical Suspicion of Infectio: No New/Unexplained Change in Ment: No Past Medical History: Hypertension, Asthma, Depression, GERD Other Medical History: RA Past Surgical History: Cholecysctectomy, Other Surgery: Dental surgery Social History Smoking Cessation: Former smoker Counseling Performed: No Alcohol Use: None Any Illegal Drug Use: No TB Exposure/Symptoms: No Physically hurt or threatened: No Family History Family history of heart diseas: Yes Other Last Tetanus: NO Any Pre-Existing Lines (PICC,: No Is patient up to date on immun: Yes Last Flu: none Last Pneumovax: none Review of Systems Review of Systems Constitutional: Reports no symptoms EENTM: Reports no symptoms Cardiovascular: Reports no symptoms Respiratory: Reports no symptoms Gastrointestinal: Reports as per HPI, Reports abdominal pain, Reports other (RUQ pain) Genitourinary: Reports no symptoms Musculoskeletal: Reports back pain, Reports muscle pain Integumentary: Reports no symptoms Neurological: Reports no symptoms Psychological: Reports no symptoms Endocrine: Reports no symptoms Hematological/Lymphatic: Reports no symptoms Physical Exam Related Data Allergies: Coded Allergies: cephalexin (Verified Allergy, Mild, 05/14/13) ibuprofen (Verified Allergy, 05/14/13) levofloxacin (Verified Allergy, 10/07/14) Triage Vital Signs Vital Signs Date Time Temp Pulse Resp B/P (MAP) Pulse Ox O2 Delivery O2 Flow Rate FiO2 03/23/20 18:06 98.2 78 18 163/69 96 Physical Exam CONSTITUTIONAL Constitutional: Reports well-developed, Reports well-nourished HENT HENT: Reports normocephalic, Reports atraumatic, Reports oropharynx clear/moist, Reports nose normal HENT L/R: Reports left ext ear normal, Reports right ext ear normal EYES Eyes: Reports PERRL, Reports conjunctivae normal NECK Neck: Reports ROM normal PULMONARY Pulmonary: Reports effort normal, Reports breath sounds normal CARDIOVASCULAR Cardiovascular: Reports regular rhythm, Reports heart sounds normal, Reports capillary refill normal, Reports normal rate GASTROINTESTINAL Abdominal: Reports soft, Reports nontender, Reports bowel sounds normal, Reports other (no hernia, o rebound) GENITOURINARY Genitourinary: Reports exam deferred SKIN Skin: Reports warm, Reports dry MUSCULOSKELETAL Musculoskeletal: Reports tenderness, 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 Her symptoms are c/w musculoskeletal pain. She will f/u with her PCP in the next few days for labs results and imaging studies as needed Assessment & Plan Final Impression: (1) Costochondritis, acute Depart Disposition: HOME, SELF-CARE Last Vital Signs Date Time Temp Pulse Resp B/P (MAP) Pulse Ox O2 Delivery O2 Flow Rate FiO2 03/23/20 18:06 98.2 78 18 163/69 96 Home Meds Active Scripts Albuterol Sulfate (PROVENTIL HFA) 6.7 Gm Hfa.aer.ad, 1 INH INH Q4HR PRN for SHORTNESS OF BREATH, #1 INH 3 Refills Prov:MAG MANNING MD 03/23/20 Ondansetron Hcl* (ZOFRAN*) 4 Mg Tablet, 4 MG SL Q6H PRN for NAUSEA, #14 MG 0 Refills Prov:MAG MANNING MD 03/23/20 Tramadol Hcl* (ULTRAM 50MG*) 50 Mg Tab, 50 MG PO Q6H for severe pain, #30 TAB Prov:MAG MANNING MD 03/23/20 Reported Medications Cetirizine Hcl (ZYRTEC) 10 Mg Capsule, 10 MG PO DAILY THERAPEUTICALLY SUBSTITUTED WITH LORATIDINE 10MG 02/15/16 Sertraline Hcl (ZOLOFT) 50 Mg Tablet, 50 MG PO DAILY, #30 TAB 02/15/16 Alprazolam* (XANAX*) 1 Mg Tablet, 1 MG PO PRN PRN for ANXIETY 02/15/16 Pantoprazole Sodium* (PROTONIX) 40 Mg Tablet.dr, 40 MG PO BID, TAB 02/14/16 Hydrocodone Bit/Acetaminophen (NORCO 10-325 TABLET) 1 Each Tablet, 1 TAB PO Q4HR PRN for PAIN 10/11/14 Etanercept (ENBREL) 50 Mg/1 Ml Disp.syrin, 50 MG SQ WEEKLY 10/07/14 Lisinopril (PRINAVIL / ZESTRIL) 20 Mg Tablet, TAB PO DAILY 05/21/13 Tramadol Hcl (ULTRAM) 50 Mg Tablet, 50 MG PO PRN 05/14/13 Sulfasalazine (AZULFIDINE) 500 Mg Tablet.dr, 1000 MG PO DAILY 05/14/13 Medications in the ED Dexamethasone Sodium Phosphate 10 mg ONCE ONCE IM ; Start 03/23/20 at 19:00; Stop 03/23/20 at 19:01; Status UNV Physician Attestation Provider Attestation risk score 280, pt will not fill Ultram until she is done with her current scripts MAG MANNING MD Mar 23, 2020 18:55
[2020-03-23] MEDS ORDERED: DEXAMETHASONE SOD PHOS 10 MG/1 ML VIAL IM ONE (19:00)
[2020-03-23] MEDS ORDERED: ZOFRAN4 MG SL (19:01)
[2020-03-23] MEDS ORDERED: ULTRAM 50MG50 MG PO (19:01)
[2020-03-23] MEDS ORDERED: PROVENTIL HFA6.7 GM INH (19:01)
--- NOTE | 2020-03-23 19:07 | NUR ---
Report to EJ Jean
== END 2020-03-23 19:12 | disposition home or self-care (01) ==
LOC: FSED 17:03
DX: M54.5 Low back pain (principal); R10.11 Right upper quadrant pain; M94.0 Chondrocostal junction syndrome [Tietze]; I10 Essential (primary) hypertension; M06.9 Rheumatoid arthritis, unspecified; K21.9 Gastro-esophageal reflux disease without esophagitis; J45.909 Unspecified asthma, uncomplicated; F32.9 Major depressive disorder, single episode, unspecified
CPT/HCPCS: 96372; 99282; J1100

== ENCOUNTER 2021-01-05 11:20 | Emergency (ER) | payer BC ==
[~2021-01-05] VITALS: Ht 152.4 cm; Wt 103.0 kg
[~2021-01-05 11:20] MED LIST changes: +PROVENTIL HFA6.7 GM INH; +ULTRAM 50MG50 MG PO; +ZOFRAN4 MG SL
[2021-01-05] MEDS ORDERED: ASPIRIN 81 MG CHEW TAB PO ONE (13:30)
[2021-01-05] MEDS ORDERED: CARAFATE1 GM PO (13:54)
[2021-01-05] MEDS ORDERED: MAGNESIUM/ALUMINUM/SIMETHICONE 30 ML UDC ONE (14:29)
[2021-01-05] MEDS ORDERED: LIDOCAINE VISC 2% SOLN 15 ML UDC ONE (14:29)
[2021-01-05] MEDS ORDERED: BELLADONNA ALK/PHENOBARBITAL 5 ML UDC ONE (14:29)
[2021-01-05] MEDS ORDERED: MAGNESIUM/ALUMINUM/SIMETHICONE 30 ML UDC PO ONE (14:45)
[2021-01-05] MEDS ORDERED: BELLADONNA ALK/PHENOBARBITAL 5 ML UDC PO ONE (14:45)
[2021-01-05] MEDS ORDERED: LIDOCAINE VISC 2% SOLN 15 ML UDC PO ONE (14:45)
== END 2021-01-05 15:34 | disposition home or self-care (01) ==
LOC: FSED 12:24
DX: R07.9 Chest pain, unspecified (principal); R06.02 Shortness of breath; K21.9 Gastro-esophageal reflux disease without esophagitis; I10 Essential (primary) hypertension; J45.909 Unspecified asthma, uncomplicated; M06.9 Rheumatoid arthritis, unspecified
CPT/HCPCS: 36415; 71045; 80053; 81003; 81025; 82553; 83880; 84484; 85025; 93005; 99284

== ENCOUNTER 2021-04-22 22:40 | Emergency (ER) | payer BC ==
[~2021-04-22] VITALS: Ht 152.4 cm; Wt 90.7 kg
[~2021-04-22 22:40] MED LIST changes: +CARAFATE1 GM PO
[2021-04-22] MEDS ORDERED: DIAZEPAM 5 MG TAB PO ONE (23:00)
[2021-04-22] MEDS ORDERED: ONDANSETRON HCL 4 MG ORAL DISINTEGRATING TAB PO ONE (23:00)
[2021-04-22] MEDS ORDERED: DEXAMETHASONE SOD PHOS INJ 4 MG/ML VIAL IM ONE (23:00)
[2021-04-22] MEDS ORDERED: ZANAFLEX4 MG PO (23:14)
[2021-04-22] MEDS ORDERED: DIAZEPAM INJ 5 MG/ML 2 ML ONE (23:25)
[2021-04-22] MEDS ORDERED: DEXAMETHASONE SOD PHOS INJ 4 MG/ML VIAL ONE (23:25)
[2021-04-22] MEDS ORDERED: ONDANSETRON HCL 4 MG ORAL DISINTEGRATING TAB ONE (23:25)
[2021-04-22] MEDS ORDERED: DIAZEPAM INJ 5 MG/ML 2 ML IM ONE (23:45)
== END 2021-04-23 00:20 | disposition home or self-care (01) ==
LOC: FSED 22:51
DX: M54.41 Lumbago with sciatica, right side (principal); G58.8 Other specified mononeuropathies; X50.1XXA Overexertion from prolonged static or awkward postures, initial encounter; I10 Essential (primary) hypertension; J45.909 Unspecified asthma, uncomplicated; M06.9 Rheumatoid arthritis, unspecified; K21.9 Gastro-esophageal reflux disease without esophagitis; F32.9 Major depressive disorder, single episode, unspecified
CPT/HCPCS: 81003; 99283; J1100; J3360; Q0162

== ENCOUNTER 2021-12-26 21:18 | Emergency (ER) | payer BC ==
[~2021-12-26] VITALS: Ht 152.4 cm; Wt 104.3 kg
[~2021-12-26 21:18] MED LIST changes: +ZANAFLEX4 MG PO
[2021-12-26] MEDS ORDERED: HYDRALAZINE HCL 20 MG/ML VIAL IV STA (21:40)
[2021-12-26] MEDS ORDERED: HYDRALAZINE HCL 20 MG/ML VIAL ONE (21:59)
[2021-12-26 23:14] LABS: CREATINE KINASE MB 0.7 ng/mL (0-5.0)
[2021-12-26 23:54] VITALS: BP 191/94
== END 2021-12-26 23:50 | disposition home or self-care (01) ==
LOC: FSED 21:36
DX: R07.9 Chest pain, unspecified (principal); I10 Essential (primary) hypertension; J45.909 Unspecified asthma, uncomplicated; K21.9 Gastro-esophageal reflux disease without esophagitis; M06.9 Rheumatoid arthritis, unspecified; F32.A Depression, unspecified
CPT/HCPCS: 36415; 70450; 71045; 82550; 82553; 84484; 93005; 99283; J0360